=== PATIENT | female | born 1960 | race Caucasian/White ===

== ENCOUNTER 2023-05-04 18:23 | Emergency (ER) | payer OTHER, SELFPAY ==
[2023-05-04 18:31] VITALS: BP 128/81; PULSE 73; RESP 20; TEMP 36.9; O2SAT 99; BMI 25.8
--- NOTE | 2023-05-04 18:40 | ED.GENADULT ---
HPI - General Adult General Chief complaint: Extremity Pain/Injury, Lower Stated complaint: Foot/Ankle Injury Time Seen by Provider: 05/04/23 18:25 History of Present Illness HPI narrative: Rolled her left foot on a step . Pain and swelling to foot Unable to bear weight 62-year-old woman presenting to the emergency department with complaint of left foot pain and swelling after she seems to have crumpled or rolled her foot excessively on a step. Unable to bear weight. No other injuries are noted Related Data Home Medications Medication Instructions Recorded Confirmed budesonide 160 mcg-glycopyr 9 2 inh inhalation DAILY 05/04/23 05/04/23 mcg-formot 4.8 mcg/actuation HFA inhaler (Breztri Aerosphere) bupropion HCl 100 mg tablet,12 hr 100 mg PO DAILY 05/04/23 05/04/23 sustained-release (Wellbutrin SR) levalbuterol tartrate 45 2 inh inhalation Q4-6H PRN 05/04/23 05/04/23 mcg/actuation aerosol inhaler (Xopenex HFA) omeprazole 20 mg capsule,delayed 20 mg PO DAILY 05/04/23 05/04/23 release Allergies Allergy/AdvReac Type Severity Reaction Status Date / Time latex Allergy Anaphylaxis Verified 05/04/23 18:38 Review of Systems Status of ROS: Reports: 6 or more systems reviewed and unremarkable except as noted in History and below PFSH PFS Social History Smoking Status: Never smoker Do you use any of these nicotine containing products: None Second hand tobacco smoke exposure: No How often do you have a drink containing alcohol: 2-3 times a week How many standard drinks containing alcohol do you have on a typical day: 1 or 2 AUDIT-C Alcohol total score: 3 Non-prescribed substance use: denies use Exam Narrative: Exam Narrative: Pleasant. NAD though not moving her left foot. An ice pack is nearby. She is resting on the bed with her foot elevated on a pillow. There is notable swelling and bruising over the mid dorsum of the foot. Wiggling her toes causes some pain. Sensation appears to be intact. There is no plantar bruising. Quite sore to palpation over the swollen area. Does not appear to be any ankle involvement. Const: Vital Signs, click to edit/add: Vital Signs - 24 hr 05/04/23 18:31 Temperature 98.4 F Pulse Rate [Pulse Oximeter] 73 Respiratory Rate 20 Blood Pressure [Ri ght Upper Arm] 128/81 Pulse Oximetry 99 Oxygen Delivery Me thod Room Air Documenting provider has reviewed patient's vital signs: yes Course Vital Signs Vital signs: Initial Vital Signs Temperature 98.4 F 05/04/23 18:31 Temperature Source Temporal Artery Scan 05/04/23 18:31 Pulse Rate 73 05/04/23 18:31 Pulse Rhythm Regular 05/04/23 18:31 Respiratory Rate 20 05/04/23 18:31 Blood Pressure 128/81 05/04/23 18:31 Blood Pressure Mean 96 05/04/23 18:31 Blood Pressure Position Sitting 05/04/23 18:31 Pulse Oximetry 99 05/04/23 18:31 Oxygen Delivery Method Room Air 05/04/23 18:31 Vital Signs Temperature 98.4 F 05/04/23 18:31 Pulse Rate 73 05/04/23 18:31 Respiratory Rate 20 05/04/23 18:31 Blood Pressure 128/81 05/04/23 18:31 Pulse Oximetry 99 05/04/23 18:31 Oxygen Delivery Method Room Air 05/04/23 18:31 Temperature 98.4 F 05/04/23 18:31 Pulse Rate 73 05/04/23 18:31 Respiratory Rate 20 05/04/23 18:31 Blood Pressure 128/81 05/04/23 18:31 Pulse Oximetry 99 05/04/23 18:31 Oxygen Delivery Method Room Air 05/04/23 18:31 Medical Decision Making MDM Narrative Medical decision making narrative: Have ordered for x-ray imaging. Also ibuprofen. Replaced ice pack with an Jose wrap. Would have concern about midfoot fracture given physical findings. Indeed by my read x-ray does show some fractures around the base of the 2nd maybe 1st metatarsals. It seems there is also a little avulsion fracture. Radiology notes similar and recommending CT. Concern of Lisfranc disruption. MRI imaging not available at this time. With increased pain did give 2 tablets of Otis in the emergency department. I review CT imaging and can appreciate numerous fractures through the midfoot. See Radiology over-read below Indication: Evaluate for Lisfranc injury. Technique: Left foot noncontrast CT. Permanently recorded images are archived. Please note that all CT scans at this facility use dose modulation, iterative reconstruction, and/or weight-based dosing when appropriate to reduce radiation dose to as low as reasonably achievable. Comparison: Left foot radiographs from the same day. Findings: Comminuted and displaced intra-articular fractures of the bases of the 1st, 2nd, 3rd, and 4th metatarsals. Mildly displaced comminuted fracture of the middle cuneiform. Nondisplaced comminuted fracture of the lateral cuneiform. The cuboid is intact. Age-indeterminate, though likely chronic, chip versus avulsion fractures of the medial base of the 1st metatarsal and possibly distal cuboid. There is slight lateral subluxation of the 2nd and 3rd metatarsal bases relative to their cuneiform articulations. Degenerative changes of the 1st metatarsophalangeal joint. Soft tissue swelling about the midfoot. Enthesopathic changes at the Achilles tendon insertion posterior calcaneus. Impression: Comminuted and displaced intra-articular fractures of the bases of the 1st through 4th metatarsals. Slight lateral subluxation of the 2nd and 3rd metatarsal bases relative to their cuneiform articulations, highly suggestive of Lisfranc ligament injury. The ligament itself cannot be accurately assessed on CT. Additional fractures of the middle and lateral cuneiforms. Age-indeterminate, though suspect chronic, chip versus avulsion fractures of the medial base of the 1st metatarsal and possibly distal cuboid. I discussed both x-ray and CT with Orthopedics on-call. We will be placing in a [place] splint. I did this heavily padded. Given crutches. They are from out of town living in [place] now and will be leaving approximately 1 week. I would encourage them to make appointment now to be seen near directly upon arrival as opposed to waiting another 1 or 2 weeks to try to get that done once return. Alternatively can be seen locally. Concern expressed by Orthopedics was degree of pain that might be experienced. Emphasized need for elevation. Pain management. See patient discharge plan Discharge Plan Discharge Clinical Impression: Fracture of foot Patient Disposition: Home w/ Parent or Adult Condition: Stable Additional Instructions: Elevate for comfort. I think it is okay to ice your foot if you can carefully remove what has been placed here and you feel you can reapply it. Use the crutches to avoid weight-bearing until follow-up. Can take ibuprofen or naproxen for pain. Also up to 1000 mg of acetaminophen per dose. Remember that each tablet of Percocet contains 325 mg of acetaminophen. Take this disc and printout of your imaging. Call tomorrow to try to establish a visit for when you return to [place] with an orthopedic foot roentgenologist. Sanforizing Machine Operator might be another possibility. Might want to fax/send a text picture of the read of the CT. Prescriptions: No Action Breztri Aerosphere 160-9-4.8 mcg/actuation HFA aerosol inhaler 2 inh inhalation DAILY levalbuterol tartrate [Xopenex HFA] 45 mcg/actuation HFA aerosol inhaler 2 inh inhalation Q4-6H PRN bupropion HCl [Wellbutrin SR] 100 mg tablet sustained-release 12 hr 100 mg PO DAILY omeprazole 20 mg capsule,delayed release(DR/EC) 20 mg PO DAILY Follow Up/Referrals: Provider,Not a Local [Primary Care Provider] - Stand Alone Forms: [employer] Info Instructions
--- NOTE | 2023-05-04 18:56 | CRLHL7_ITS ---
For Patients: As a result of the Century Cures Act, medical imaging exams and procedure reports are released immediately into your electronic medical record. You may view this report before your referring provider. If you have questions, please contact your health care provider. Indication: Pain and swelling. FINDINGS: Three views of the left foot were obtained. There is a lucent line in the base of the 2nd metatarsal bone consistent with nondisplaced fracture. There are tiny calcifications off the 2nd cuneiform bone distally consistent with a fracture. The lateral view there is a mild displayed fracture a cuneiform bone which is likely the 2nd cuneiform bone. There is likely disruption of the Lisfranc joint. Impression: Nondisplaced right in the base of the 2nd metatarsal bone and a displaced fracture in the 2nd cuneiform bone on the lateral view with probable disruption of the Lisfranc joint. Recommend a CT scan of the foot to further evaluate this. Dictated by Getachew Prado MD @ 05/04/2023 8:14:02 PM (Electronically Signed)
[2023-05-04] MEDS: IBUPROFEN 400 MG TABLET 800 MG PO (19:22)
--- NOTE | 2023-05-04 20:15 | CRLHL7_ITS ---
For Patients: As a result of the Century Cures Act, medical imaging exams and procedure reports are released immediately into your electronic medical record. You may view this report before your referring provider. If you have questions, please contact your health care provider. Indication: Evaluate for Lisfranc injury. Technique: Left foot noncontrast CT. Permanently recorded images are archived. Please note that all CT scans at this facility use dose modulation, iterative reconstruction, and/or weight-based dosing when appropriate to reduce radiation dose to as low as reasonably achievable. Comparison: Left foot radiographs from the same day. Findings: Comminuted and displaced intra-articular fractures of the bases of the 1st, 2nd, 3rd, and 4th metatarsals. Mildly displaced comminuted fracture of the middle cuneiform. Nondisplaced comminuted fracture of the lateral cuneiform. The cuboid is intact. Age-indeterminate, though likely chronic, chip versus avulsion fractures of the medial base of the 1st metatarsal and possibly distal cuboid. There is slight lateral subluxation of the 2nd and 3rd metatarsal bases relative to their cuneiform articulations. Degenerative changes of the 1st metatarsophalangeal joint. Soft tissue swelling about the midfoot. Enthesopathic changes at the Achilles tendon insertion posterior calcaneus. Impression: Comminuted and displaced intra-articular fractures of the bases of the 1st through 4th metatarsals. Slight lateral subluxation of the 2nd and 3rd metatarsal bases relative to their cuneiform articulations, highly suggestive of Lisfranc ligament injury. The ligament itself cannot be accurately assessed on CT. Additional fractures of the middle and lateral cuneiforms. Age-indeterminate, though suspect chronic, chip versus avulsion fractures of the medial base of the 1st metatarsal and possibly distal cuboid. Please note that all CT scans at this facility use dose modulation, iterative reconstruction, and/or weight-based dosing when appropriate to reduce radiation dose to as low as reasonably achievable. Dictated by Ceasar Friedman MD @ 05/04/2023 9:35:36 PM (Electronically Signed)
[2023-05-04] MEDS: HYDROCODONE-ACETAMIN 5-325 MG 1 TAB 2 TAB PO (21:08)
== END 2023-05-04 22:34 | disposition home or self-care (01) ==
PROVIDERS: Emergency Provider Family Medicine
DX: S92.902A Unspecified fracture of left foot, initial encounter for closed fracture (principal)
CPT/HCPCS: 29505; 73630; 73700; 99284; A9270